=== PATIENT | female | born 2000 | race Native Hawaiian/Other Pacific Islander ===

== ENCOUNTER 2019-02-01 16:25 | Emergency (ER) | payer OTHER ==
--- NOTE | 2019-02-01 16:50 | Emergency Department Report ---
Chief Complaint: Abdominal Pain Stated Complaint: STOMACH PAIN Time Seen by Provider: 02/01/19 16:47 - HPI History of Present Illness: This is a 18 y.o. female that presents with abdominal pain and vomiting since this evening. LMP 01/30/19, 0. Concerns of . Reports pain to epigastric region, burning sensation. - Exam Vital Signs: Vital Signs 02/01/19 16:28 Temperature 98.8 F Pulse Rate 80 Respiratory 18 Rate Blood Pressure 138/81 O2 Sat by Pulse 98 Oximetry MSE screening note: Focused history and physical exam performed. Due to findings the following was ordered: labs acc for further evaluation ED Disposition for MSE Condition: Stable Instructions: Abdominal Pain (ED)
[2019-02-01 17:22] LABS: Basophils % (Auto) 0.4 % (0.0-1.8); Eosinophils # (Auto) 0.2 K/mm3 (0.0-0.4); Hematocrit 33.8 % (30.3-42.9); Hemoglobin 11.2 gm/dl (10.1-14.3); Lymphocytes # (Auto) 1.7 K/mm3 (1.2-5.4); Lymphocytes % (Auto) 16.4 % (13.4-35.0); Mean Corpuscular HGB Conc 33 % (30-34); Mean Corpuscular Volume 77 fl (79-97); Monocytes # (Auto) 0.5 K/mm3 (0.0-0.8); Monocytes % (Auto) 4.5 % (0.0-7.3); Platelet Count 368 K/mm3 (140-440); Red Blood Count 4.38 M/mm3 (3.65-5.03)
[2019-02-01 17:29] LABS: Mean Corpuscular Hemoglobin 26 pg (28-32)
[2019-02-01 17:48] LABS: Alanine Aminotransferase 16 units/L (7-56); Albumin 4.6 g/dL (3.9-5); BUN/Creatinine Ratio 15; Blood Urea Nitrogen 9 mg/dL (7-17); Calcium 9.3 mg/dL (8.4-10.2); Hemolysis Index 3
[2019-02-01 17:58] LABS: Bilirubin,Urine NEG (Negative); Color,Urine Yellow (Yellow)
[2019-02-01 17:59] LABS: Blood,Urine MOD (Negative); Calcium Oxalate Crystals,Urine 3+; Mucus,Urine 2+ /HPF
[2019-02-01 20:13] VITALS: BP 116/77
[2019-02-01] MEDS ORDERED: LIDOCAINE VISCOUS 2% PO ONE (20:19)
[2019-02-01] MEDS ORDERED: MACROBID PO ONE (20:19)
[2019-02-01] MEDS ORDERED: MOTRIN PO ONE (20:19)
[2019-02-01] MEDS ORDERED: ALUM-MAG HYDROX-SIMETH 200-200-20MG/5ML PO ONE (20:19)
--- NOTE | 2019-02-01 21:09 | Emergency Department Report ---
ED Abdominal Pain HPI - General Chief Complaint: Abdominal Pain Stated Complaint: STOMACH PAIN Time Seen by Provider: 02/01/19 16:47 Source: patient Mode of arrival: Ambulatory Limitations: No Limitations - History of Present Illness Initial Comments: This is a 18 y.o. female that presents with abdominal pain and vomiting since this evening. LMP 01/30/19, 0. Concerns of . MD Complaint: abdominal pain Onset/Timin -: days(s) Location: L flank Radiation: suprapubic Migration to: suprapubic Severity: moderate Severity scale (0 -10): 2 Quality: aching Consistency: intermittent Improves With: nothing Worsens With: nothing Associated Symptoms: nausea, dysuria - Related Data Previous Rx's Medication Instructions Recorded Last Taken Type Ibuprofen 800 mg PO TID PRN #30 tablet 02/01/19 Unknown Rx Nitrofurantoin Monohyd/M-Cryst 100 mg PO BID 7 Days #14 capsule 02/01/19 Unknown Rx [Macrobid 100 mg Capsule] Omeprazole 20 mg PO DAILY #30 tablet. 02/01/19 Unknown Rx Allergies Allergy/AdvReac Type Severity Reaction Status Date / Time No Known Allergies Allergy Unverified 02/01/19 16:25 ED Review of Systems ROS: Stated complaint: STOMACH PAIN Other details as noted in HPI Constitutional: denies: chills, fever Eyes: denies: eye pain, eye discharge, vision change ENT: denies: ear pain, throat pain Respiratory: denies: cough, shortness of breath, wheezing Cardiovascular: denies: chest pain, palpitations Endocrine: no symptoms reported Gastrointestinal: abdominal pain. denies: nausea, diarrhea, constipation, hematemesis, melena, hematochezia Genitourinary: denies: urgency, dysuria, discharge Musculoskeletal: denies: back pain, joint swelling, arthralgia Skin: denies: rash, lesions Neurological: denies: headache, weakness, paresthesias Psychiatric: denies: anxiety, depression Hematological/Lymphatic: denies: easy bleeding, easy bruising ED Past Medical Hx - Past Medical History Previous Medical History?: No - Surgical History Past Surgical History?: No - Social History Smoking Status: Never Smoker Substance Use Type: None - Medications Home Medications: Home Medications Medication Instructions Recorded Confirmed Last Taken Type Ibuprofen 800 mg PO TID PRN #30 tablet 02/01/19 Unknown Rx Nitrofurantoin Monohyd/M-Cryst 100 mg PO BID 7 Days #14 capsule 02/01/19 Unknown Rx [Macrobid 100 mg Capsule] Omeprazole 20 mg PO DAILY #30 tablet. 02/01/19 Unknown Rx ED Physical Exam - General Limitations: No Limitations General appearance: alert, in no apparent distress - Head Head exam: Present: atraumatic, normocephalic - Eye Eye exam: Present: normal appearance - ENT ENT exam: Present: mucous membranes moist - Neck Neck exam: Present: normal inspection - Respiratory Respiratory exam: Present: normal lung sounds bilaterally, chest wall tenderness. Absent: respiratory distress, wheezes, stridor - Cardiovascular Cardiovascular Exam: Present: regular rate, normal rhythm. Absent: systolic murmur, diastolic murmur, rubs, gallop - GI/Abdominal GI/Abdominal exam: Present: soft, normal bowel sounds - Rectal Rectal exam: Present: deferred - Extremities Exam Extremities exam: Present: normal inspection, full ROM - Back Exam Back exam: Present: normal inspection, full ROM. Absent: tenderness, CVA tenderness (R), CVA tenderness (L), muscle spasm, paraspinal tenderness, vertebral tenderness, rash noted - Neurological Exam Neurological exam: Present: alert, oriented X3, CN II-XII intact, normal gait, reflexes normal. Absent: motor sensory deficit - Psychiatric Psychiatric exam: Present: normal affect, normal mood - Skin Skin exam: Present: warm, dry, intact, normal color. Absent: rash ED Course Vital Signs 02/01/19 02/01/19 02/01/19 16:28 20:12 20:49 Temperature 98.8 F 98.2 F Pulse Rate 80 77 Respiratory 18 16 16 Rate Blood Pressure 138/81 Blood Pressure 116/77 [Left] O2 Sat by Pulse 98 100 Oximetry ED Medical Decision Making - Lab Data Result diagrams: 02/01/19 17:09 02/01/19 17:09 Labs 02/01/19 02/01/19 02/01/19 17:09 17:09 17:09 WBC 10.3 RBC 4.38 Hgb 11.2 Hct 33.8 MCV 77 L MCH 26 L MCHC 33 RDW 15.0 Plt Count 368 Lymph % (Auto) 16.4 Wilkinson % (Auto) 4.5 Eos % (Auto) 2.0 Baso % (Auto) 0.4 Lymph # 1.7 Wilkinson # 0.5 Eos # 0.2 Baso # 0.0 Seg Neutrophils % 76.7 H Seg Neutrophils # 7.9 H Sodium 141 Potassium 4.1 Chloride 104.1 Carbon Dioxide 25 Anion Gap 16 BUN 9 Creatinine 0.6 L Estimated GFR > 60 BUN/Creatinine Ratio 15 Glucose 108 H Calcium 9.3 Total Bilirubin 0.20 AST 18 ALT 16 Alkaline Phosphatase 66 Total Protein 7.9 Albumin 4.6 Albumin/Globulin Ratio 1.4 HCG, Qual Negative Urine Color Urine Turbidity Urine pH Ur Specific [place]mage Urine Protein Urine Glucose (UA) Urine Ketones Urine Blood Urine Nitrite Urine Bilirubin Urine Urobilinogen Ur Leukocyte Esterase Urine WBC (Auto) Urine RBC (Auto) U Epithel Cells (Auto) Calcium Oxalate Crystal Urine Mucus 02/01/19 17:19 WBC RBC Hgb Hct MCV MCH MCHC RDW Plt Count Lymph % (Auto) Wilkinson % (Auto) Eos % (Auto) Baso % (Auto) Lymph # Wilkinson # Eos # Baso # Seg Neutrophils % Seg Neutrophils # Sodium Potassium Chloride Carbon Dioxide Anion Gap BUN Creatinine Estimated GFR BUN/Creatinine Ratio Glucose Calcium Total Bilirubin AST ALT Alkaline Phosphatase Total Protein Albumin Albumin/Globulin Ratio HCG, Qual Urine Color Yellow Urine Turbidity Cloudy Urine pH 6.0 Ur Specific [place] 1.033 H Urine Protein 30 mg/dl Urine Glucose (UA) Neg Urine Ketones Tr Urine Blood Mod Urine Nitrite Neg Urine Bilirubin Neg Urine Urobilinogen 2.0 Ur Leukocyte Esterase Sm Urine WBC (Auto) 8.0 H Urine RBC (Auto) 9.0 U Epithel Cells (Auto) 34.0 H Calcium Oxalate Crystal 3+ Urine Mucus 2+ - Medical Decision Making pt has hx of GERD , ua: pos leuk, wbc, rbc, there is no hematuria no fever no chills, pain is reliever with ibuprofen and GI cocktail given in ed, plan : macrobid, ibuprofen, omeprazole follow up with pcp in 2-3 days given referral to [facility] pt verbalized agreement and understanding of discharge plan. . Critical care attestation.: If time is entered above; I have spent that time in minutes in the direct care of this critically ill patient, excluding procedure time. ED Disposition Clinical Impression: UTI (urinary tract infection) Qualifiers: Urinary tract infection type: acute cystitis Hematuria presence: without hematuria Qualified Code(s): N30.00 - Acute cystitis without hematuria Disposition: DC- TO HOME OR SELFCARE Is pt being admited?: No Does the pt Need Aspirin: No Condition: Stable Instructions: Abdominal Pain (ED), Urinary Tract Infection in Women (ED) Prescriptions: Ibuprofen 800 mg PO TID PRN #30 tablet PRN Reason: pain Nitrofurantoin Monohyd/M-Cryst [Macrobid 100 mg Capsule] 100 mg PO BID 7 Days #14 capsule Omeprazole 20 mg PO DAILY #30 tablet. Referrals: [facility] [Outside] - 3-5 Days Forms: Work/School Release Form(ED) Time of Disposition: 21:24
== END 2019-02-01 21:35 | disposition home or self-care (01) ==
LOC: ED 16:25
DX: N30.00 Acute cystitis without hematuria (principal)
CPT/HCPCS: 36415; 80053; 81001; 84703; 85025